=== PATIENT | female | born 1965 | race Caucasian/White ===

== ENCOUNTER 2017-10-31 08:31 | Outpatient (CLI) | payer OTHER | END 2017-10-31 08:34 | disposition home or self-care (01) | LOC: SONOGRAMA 08:31 | DX: E04.2 Nontoxic multinodular goiter (principal) ==

== ENCOUNTER 2021-11-19 06:16 | Day surgery (SDC) | payer OTHER ==
[~2021-11-19] VITALS: Ht 154.9 cm; Wt 60.8 kg
[~2021-11-19 06:16] MED LIST: SIMVAST PO; SYNTHROID75 MCG PO
[2021-11-19] MEDS ORDERED: NAPR500T14 PO (09:13)
[2021-11-19] MEDS ORDERED: MORGIDOX100 MG PO (09:13)
== END 2021-11-19 13:30 | disposition home or self-care (01) ==
LOC: CIR.AMB 06:16
PROVIDERS: ATTEND Obstetrics & Gynecology
DX: D25.0 Submucous leiomyoma of uterus (principal); Z20.822 Contact with and (suspected) exposure to COVID-19; Z71.6 Tobacco abuse counseling; F17.210 Nicotine dependence, cigarettes, uncomplicated; E03.9 Hypothyroidism, unspecified